=== PATIENT | male | born 1995 | race Caucasian/White ===

== ENCOUNTER 2017-12-10 11:42 | Inpatient (IN) | payer BC, OTHER ==
[2017-12-10 12:12] LABS: ABS Basophils 0 10^3/ul (0-0.2); ABS Eosinophils 0.1 10^3/ul (0-0.6); ABS Lymphocytes 1.1 10^3/ul (1.0-4.8); ABS Monocytes 0.5 10^3/ul (0-0.8); ABS Neutrophils 4.1 10^3/ul (1.5-7.7); ABS Nucleated RBC 0 10^3/ul; Eosinophil % 1.4 % (0-6); Hematocrit 39 % (42-52); Hemoglobin 13.6 g/dl (14.0-18.0); Lymphocyte % 18.6 % (25-47); Mean Corpuscular HGB Conc 35 g/dl (31-36); Mean Corpuscular Hemoglobin 31 pg (27-31); Mean Corpuscular Volume 88 fL (80-94); Nucleated Red Blood Cells % 0.1; Platelet Count 248 10^3/ul (150-450); Red Blood Count 4.39 10^6/ul (4.00-5.40); Red Cell Distribution Width 12 % (10.5-15); White Blood Count 5.8 10^3/ul (3.5-10.8)
--- NOTE | 2017-12-10 12:15 | ED ---
Adult Trauma - HPI Summary HPI Summary: This pt is a 21 y/o male presenting to [facility] referred by Dr. Gutierrez for reevaluation of L1 and T12 fractures s/p back injury on 12/03/17. Mother reports that on 12/03 pt was working on power line standing on a 40 ft pole. Per mother, the pole was rodded below the ground and pt fell with the pole from a 40 ft height. Pt had LOC and does not remember the accident. Mother states pt suffered a severe concussion, lacerated spleen, and fractures on left forearm, left elbow and L1,T12. Pt was airlifted to a trauma center in [place] and neurosurgeon there attended pt's arm first and wanted his back stabilized. Neurosurgeon believed that there was a 40% chance pt's back might heal on its own with a brace but may still need surgery. Pt saw Dr. Gutierrez, neurosurgeon , today and he believes the pt has an unsafe back and needs surgery. Pt was referred to the ED for repeat imaging and a consult. Pt currently reports tingling on left arm. Denies tingling, weakness, or numbness in lower extremities, urinary or bowel dysfunction, chest pain, SOB. Pt is currently on 600 mg Ibuprofen and a muscle relaxer. He states his pain is controlled. He only took 2 oxycodone after his accident, none since then. He drinks alcohol occasionally. Denies drug or tobacco use. - History of Current Complaint Chief Complaint: EDBackInjuryPain Stated Complaint: BACK INJURY Time Seen by Provider: 12/10/17 11:50 Hx Obtained From: Patient Mechanism of Injury: Fall - from 40 ft height on 12/03 Ambulatory at the Scene: No Loss of Consciousness: prolonged (minutes) Onset/Duration: Started Days Ago, Traumatic, Still Present Onset of Pain: Days Current Severity: Severe Pain Intensity: 7 Pain Scale Used: 0-10 Numeric Location: Back, Extremities - left upper Aggravating Factor(s): Movement Alleviating Factor(s): Rest Associated Signs & Symptoms: Positive: Loss of Consciousness - on 12/03. Negative: SOB, Chest Pain, Other: - urinary or bowel dysfunction, tingling, weakness or numbness in LE - Allergy/Home Medications Allergies/Adverse Reactions: Allergies Allergy/AdvReac Type Severity Reaction Status Date / Time Penicillins Allergy Unknown Verified 12/10/17 11:59 Reaction Details Home Medications: Home Medications Acetaminophen TAB* [Tylenol TAB*] 650 mg PO Q4H PRN 12/10/17 [History Confirmed 12/10/17] Cyclobenzaprine TAB* [Flexeril 10 MG TAB*] 10 mg PO TID PRN 12/10/17 [History Confirmed 12/10/17] Docusate CAP* [Colace Cap*] 100 mg PO BID PRN 12/10/17 [History Confirmed ] Ibuprofen TAB* [Motrin TAB* 600 MG] 600 mg PO TID WITH MEALS PRN 12/10/17 [ History Confirmed 12/10/17] oxyCODONE TAB* [Roxycodone TAB 5 mg*] 5 - 10 mg PO Q4H PRN 12/10/17 [History Confirmed 12/10/17] PMH/Surg Hx/FS Hx/Imm Hx Endocrine/Hematology History: Denies: Hx Diabetes Cardiovascular History: Denies: Hx Hypertension Musculoskeletal History: Reports: Hx of Fracture(s) - L1 and T12 fractures, left forearm, and left elbow - Surgical History Surgery Procedure, Year, and Place: Appendectomy. Varicocele surgery Infectious Disease History: No Infectious Disease History: Denies: Traveled Outside the [place] in Last 30 Days - Family History Known Family History: Positive: Cardiac Disease - grandfather with MS at age 36 Family History: maternal grandmother with non-hodgkin's - Social History Alcohol Use: Occasionally Substance Use Type: Reports: None Smoking Status (MU): Never Smoked Tobacco Review of Systems Negative: Fever, Chills Negative: Chest Pain Negative: Shortness Of Breath Negative: incontinence Musculoskeletal: Other - L1 and T12 fractures, left forearm and elbow fractures Positive: Paresthesia - in left arm only, denies paresthesia in lower ext.. Negative: Weakness, Numbness All Other Systems Reviewed And Are Negative: Yes Physical Exam - Summary Physical Exam Summary: VITAL SIGNS: Reviewed. GENERAL: Patient is a well-developed and nourished male. Patient is not in any acute respiratory distress. HEAD AND FACE: No signs of trauma. No ecchymosis, hematomas or skull depressions. No sinus tenderness. EYES: PERRLA, EOMI x 2, No injected conjunctiva, no nystagmus. EARS: Hearing grossly intact. Ear canals and tympanic membranes are within normal limits. MOUTH: Oropharynx within normal limits. NECK: Supple, trachea is midline, no adenopathy, no JVD, no carotid bruit, no c- spine tenderness, neck with full ROM. CHEST: Symmetric, no tenderness at palpation LUNGS: Clear to auscultation bilaterally. No wheezing or crackles. CVS: Regular rate and rhythm, S1 and S2 present, no murmurs or gallops appreciated. ABDOMEN: Soft, non-tender. No signs of distention. No rebound, no guarding, and no masses palpated. Bowel sounds are normal. MSK: Pt is wearing a thoracolumbar brace. He has bruising in left upper extremity and swelling with good capillary refill and good pulses. Hematoma under left arm. NEURO: Alert and oriented x 3. No acute neurological deficits. Speech is normal and follows commands. SKIN: Dry and warm Triage Information Reviewed: Yes Vital Signs On Initial Exam: Initial Vitals Temp Pulse Resp BP Pulse Ox 98.2 F 117 16 112/62 97 12/10/17 11:52 12/10/17 11:52 12/10/17 11:52 12/10/17 11:52 12/10/17 11:52 Vital Signs Reviewed: Yes Diagnostics - Vital Signs Vital Signs Temp Pulse Resp BP Pulse Ox 12/10/17 11:52 98.2 F 117 16 112/62 97 - Laboratory Result Diagrams: 12/10/17 12:05 12/10/17 12:05 Lab Statement: Any lab studies that have been ordered have been reviewed, and results considered in the medical decision making process. - Radiology Thoracic spine XR Xray Interpretation: Positive (See Comments) - IMPRESSION: 1. No significant change at mild loss of height at the anterior column o fthe L1 vertebral body compared with the December 03, 2017 exam. Only mild dorsal bulging of the middle column evident without significant change. 2. Grossly nondisplaced fracture visualized extending through the L2 LEFT transverse process. 3. New mild LEFT lateral convexity of the paraspinal soft tissue contours at the L1-L2 levels concerning for paraspinal hematoma. Dr. Menendez has reviewed this report. Radiology Interpretation Completed By: Radiologist Lumbar spine XR Xray Interpretation: Positive (See Comments) - IMPRESSION: 1. No significant change at mild loss of height at the anterior column o fthe L1 vertebral body compared with the December 03, 2017 exam. Only mild dorsal bulging of the middle column evident without significant change. 2. Grossly nondisplaced fracture visualized extending through the L2 LEFT transverse process. 3. New mild LEFT lateral convexity of the paraspinal soft tissue contours at the L1-L2 levels concerning for paraspinal hematoma. Dr. Menendez has reviewed this report. Radiology Interpretation Completed By: Radiologist - CT Lumbar spine CT CT Interpretation: Positive (See Comments) - IMPRESSION: 1. Posterior column T12 fracture as described. 2. Anterior, middle, and posterior column L1 fractures as described; Chance axially oriented fracture pattern. 3. Posterior columb L2 fracture as described. 4. Negative for resulting central canal stenosis. 5. Mild posttraumatic stenosis at the LEFT L1-L2 foramina. 6. Accounting for differences in techniques there is no appreciable change in fracture alignment compared with the December 04, [address] Menendez has reviewed this report. CT Interpretation Completed By: Radiologist Adult Trauma Course/Dx - Course Assessment/Plan: Pt is a 21 y/o male presenting to [facility] referred by Dr. Gutierrez for reevaluation of L1 and T12 fractures s/p traumatic back injury on 12/03/17 after falling off a 40 ft height. Lumbar spine and thoracic spine x- rays show 1. No significant change at mild loss of height at the anterior column o fthe L1 vertebral body compared with the December 03, 2017 exam. Only mild dorsal bulging of the middle column evident without significant change. 2. Grossly nondisplaced fracture visualized extending through the L2 LEFT transverse process. 3. New mild LEFT lateral convexity of the paraspinal soft tissue contours at the L1-L2 levels concerning for paraspinal hematoma. Lumbar spine CT reveals Posterior column T12 fracture as described. 2. Anterior, middle , and posterior column L1 fractures as described; Chance axially oriented fracture pattern. 3. Posterior column L2 fracture as described. 4. Negative for resulting central canal stenosis. 5. Mild posttraumatic stenosis at the LEFT L1- L2 foramina. 6. Accounting for differences in techniques there is no appreciable change in fracture alignment compared with the December 04, 2017 MRI. Blood work without any significant abnormality except for slight anemia, total bili 1.3, and CRP of 11.2. The patient did not require any pain medications. The patient is comfortable. At this point Dr. Reed from neurosurgery came and will admit the patient to his services for further workup and management. Patient is hemodynamically stable alert and oriented 3. - Diagnoses Provider Diagnoses: Vertebral fracture - Physician Notifications Discussed Care Of Patient With: Gregory Reed - neurosurgeon Instructed by Provider To: Admit As Inpatient Discharge - Sign-Out/Discharge Documenting (check all that apply): Patient Departure - Admit to [facility] All imaging exams completed and their final reports reviewed: Yes - Discharge Plan Condition: Stable Disposition: ADMITTED TO [facility] - Billing Disposition and Condition Condition: STABLE Disposition: Admitted to [facility] - Attestation Statements Document Initiated by Rony: Yes Documenting Scribe: Lily Johnson Provider For Whom Rony is Documenting (Include Credential): Fareed Menendez MD Scribe Attestation: Lily Ba, scribed for Fareed Menendez MD on 12/12/17 at 0746. Scribe Documentation Reviewed: Yes Provider Attestation: The documentation as recorded by the Lily chong accurately reflects the service I personally performed and the decisions made by , Fareed Menendez MD
--- OUTSIDE RECORDS SUMMARY | 2017-12-10 12:50 | XMS REPORT ---
:1995 External Reference #:[id number] Author Organization [facility] Address [address] [place] [address] Phone [phone] Care Team Providers Name Role Phone Roldan Meyers MD Primary Care Physician Unavailable Payers Type Date Identification Numbers Payment Provider Subscriber Workers Compensation Effective: Policy Number: [employer] 2017 [id number] Onset: 2017 Group Number: [id number] [address] [id number] PayID: [id number] [place] [address] Problems Date Description Provider Status Onset: 12/10/2017 Closed fracture of lumbar vertebra Vassilios MD Brenda Active without spinal cord injury Social History Type Date Description Comments Lives With Mother And Father 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 Smoking Patient has never smoked Daily Caffeine Does Not Consume Caffeine Allergies, Adverse Reactions, Alerts Date Description Reaction Status Severity Comments 12/10/2017 Penicillin active Medications Medication Date Status Form Strength Qnty SIG Indications Ordering Provider Ibuprofen 00 Active Tablets 600mg three times a Unknown /0000 day Cyclobenzaprine Active Tablets 10mg 1 tablet by Unknown HCL /0000 mouth q8 hours as needed muscle spasms Oxycodone HCL 00 Active Tablets 5mg 1 tabs by Unknown /0000 mouth every 4-6 hours as needed Acetaminophen 00/00 Active Tablets 325mg 2 tablets by Unknown /0000 mouth every 6 hours as needed for pain/fever Docusate Sodium 00 Active Capsules 100mg 1 tab every Unknown /0000 12 hours as needed for constipation Vital Signs Date Vital Result Comment 12/10/2017 Weight 214.00 lb Heart Rate 88 /min BP Systolic Sitting 136 mmHg BP Diastolic Sitting 84 mmHg Respiratory Rate 20 /min Body Temperature 97.6 F Results Description No Information Procedures Description No Information Plan of Care 12/10/2017 - Ck Gutierrez, [id number] Unsp fracture of first lumbar vertebra, init for clos fxFollow up:RV in 2 weeks. Patient will go to ED today for further imaging.
[2017-12-10] MEDS ORDERED: Al Hydrox/Mg Hydrox/Simet LIQ* 30 ML UDC PO PRN (13:17)
--- NOTE | 2017-12-10 13:18 | RAD ---
Indication: Lumbar sacral spine junction fracture secondary to 40 foot fall from a power line pole December 03, 2017. Comparison: December 03, 2017 radiographs. Technique: Standing AP and lateral views thoracic spine and lumbar sacral spine obtained with a brace in place. Report: Normal thoracic kyphosis and lumbar lordosis. Negative for spondylolisthesis at any level. No significant change at mild loss of height at the anterior column of the L1 vertebral body compared with the December 03, 2017 exam. Only mild dorsal bulging of the middle column evident without significant change. Grossly nondisplaced fracture visualized extending through the L2 LEFT transverse process. Mild LEFT lateral convexity of the paraspinal soft tissue contours at the L1-L2 levels concerning for paraspinal hematoma. IMPRESSION: #. No significant change at mild loss of height at the anterior column of the L1 vertebral body compared with the December 03, 2017 exam. Only mild dorsal bulging of the middle column evident without significant change. #. Grossly nondisplaced fracture visualized extending through the L2 LEFT transverse process. #. New mild LEFT lateral convexity of the paraspinal soft tissue contours at the L1-L2 levels concerning for paraspinal hematoma.
[2017-12-10] MEDS: Magnesium Hydroxide LIQ* 30 ML UDC PO PRN (13:44)
[2017-12-10] MEDS: oxyCODONE/Acetamin 5/325 MG* TAB PO PRN ×3 (13:44→22:37)
[2017-12-10] MEDS: Ibuprofen TAB* 600 MG PO PRN ×2 (13:44→22:33)
--- NOTE | 2017-12-10 13:55 | RAD ---
Indication: Back pain post 40 foot fall with thoracic lumbar junction fractures December 03, 2017. Comparison: December 04, 2017 MRI and December 10, 2017 radiographs. Technique: Noncontrast CT lumbar sacral spine. Multiplanar reformation. Report: Negative for appreciable paraspinal hematoma. Chronic bilateral L5 spondylolysis with partial osseous fusion. Normal vertebral alignment without spondylolisthesis at any level. Oblique axial fracture through the spinous process of the T12 vertebral body with up to 0.5 cm posterior displacement. Negative for fracture of the middle or anterior columns at T12. Axial oriented Chance fracture at L1 involving the anterior, middle, and posterior columns. Disproportionate anterior compression with resulting approximate 30% loss of height at the anterior margin of the vertebral body. Negative for resulting acquired central canal stenosis. Up to 0.6 cm cephalocaudal distraction at the fracture plane where it extends through the bilateral pars interarticularis. The fracture extends to involve the LEFT transverse process with up to 0.7 cm anterior displacement. Additional fracture at L1 involving the LEFT posterior inferior margin of the vertebral body with only up to 2.5 mm posterior and caudal displacement. Resulting mild posttraumatic stenosis at the LEFT L1-L2 foramina. At L2 there is a grossly nondisplaced fracture at the peripheral cephalad margin of the LEFT transverse process. No CT abnormality of the intervertebral discs evident. IMPRESSION: #. Posterior column T12 fracture as described #. Anterior, middle, and posterior column L1 fractures as described; Chance axially oriented fracture pattern. #. Posterior column L2 fracture as described. #. Negative for resulting central canal stenosis. #. Mild posttraumatic stenosis at the LEFT L1-L2 foramina. #. Accounting for differences in technique there is no appreciable change in fracture alignment compared with the December 04, 2017 MRI.
--- NOTE | 2017-12-10 18:21 | RAD ---
INDICATION: Status post ORIF LEFT elbow. Traumatic fall. COMPARISON: December 03, 2017 TECHNIQUE: AP, lateral, and oblique views LEFT elbow. REPORT AND IMPRESSION: #. Dorsal and medial cortical plates traverse the comminuted intra-articular fracture of the proximal ulna with resulting gross anatomic alignment. #. The elbow joint remains located. #. Joint effusion and soft tissue swelling most prominent posteriorly. #. Radiopaque densities in the posterior soft tissues may represent bone fragments or embedded foreign bodies. Presence of splint on the prior exam limits comparison.
--- NOTE | 2017-12-10 18:23 | RAD ---
Indication: Post ORIF proximal ulna. Comparison: Elbow exam of the same date. Technique: AP and crosstable lateral views LEFT radius and ulna. REPORT AND IMPRESSION: #. Refer to dedicated elbow report of the same day for description of proximal ulna findings. No additional abnormality of the ulna or radius evident. Normal alignment at the distal radial ulnar and radiocarpal joints. Soft tissue swelling most prominent along the dorsal aspect.
[2017-12-10 19:10] LABS: Urine Appearance Clear; Urine Color Yellow; Urine Ketones Negative (Negative); Urine Urobilinogen Negative (Negative)
[2017-12-10 19:11] LABS: Urine Blood Negative (Negative); Urine Protein 1+(30 mg/dL) (Negative)
--- NOTE | 2017-12-10 20:30 | HP ---
ADMISSION HISTORY AND PHYSICAL: DATE OF ADMISSION: 12/10/17 CHIEF COMPLAINT: Back pain. 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 He suffered multiple injuries to include an open left elbow fracture and L1 fracture and a small splenic laceration. He was hospitalized in [facility] where he was observed for his splenic injury, which remained stable. He underwent open reduction and internal fixation of his left elbow fracture. For his lumbar fracture, he was placed in a [place] brace and discharged home to follow up here. He was apparently seen by Dr. Bentley, who referred him to our office and he was seen in our clinic this morning by Dr. Gutierrez, who reviewed his x- ray studies from [place] and felt that he had a significantly unstable Chance fracture at L1. Upon review of the CT, referred the patient to the [facility] for a repeat CT scan to see if there have been any movements since his study on 12/03/[address] scan looked essentially the same. He has a very unstable Chance fracture through L1 that extends all the way from both anterior to posterior to include both anterior and posterior ligaments of L1 as well as the spinous process fracture of T12. So, decision was made to admit the patient for surgical stabilization. PAST MEDICAL HISTORY: He has no prior significant medical problems. PAST SURGICAL HISTORY: Significant for previous surgeries to include a varicose vein stripping and an appendectomy. MEDICATIONS: At the time of admission included: 1. Ibuprofen 600 mg p.o. q.6 hours as needed for pain. 2. Oxycodone 5/325 as needed for pain. ALLERGIES: He is allergic to PENICILLIN. FAMILY HISTORY: A family history was taken, it did not contribute to this illness. SOCIAL HISTORY: The patient works as an forge utility worker and has a supportive family. He does not smoke and does have an occasional drink. REVIEW OF SYSTEMS: A system review was significant only for his orthopedic review for his left elbow fracture, his neurological review for his L1 Chance fracture. The remainder of his system review performed, it did not contribute to this illness. PHYSICAL EXAMINATION HEENT: Head was normocephalic with no scalp contusions or tenderness. Eyes reveal full range of extraocular movements with pupils are equal and reactive to light. NECK: Supple. LUNGS: Clear to auscultation. CARDIOVASCULAR EXAM: Revealed a regular rate and rhythm. ABDOMEN: Soft with normal bowel sounds. No tenderness. EXTREMITIES: Revealed a bandage and splint on his left arm. He had full motion of all extremities. NEUROLOGIC: Revealed awake, alert, and oriented. Motor examination revealed 5/ 5 strength in all extremities. Sensory examination was intact to pinprick and light touch. Reflexes were 2+ with downgoing toes and no clonus. DIAGNOSTIC STUDIES/LAB DATA: His x-rays studies were reviewed and show evidence of an unstable fracture at L1. PLAN: He has been admitted at this time for elective surgical stabilization. I am going to ask Dr. Montes to evaluate his left elbow fracture. [id number]/[facility] #: [id number] MTDD
[2017-12-10] MEDS: Zolpidem TAB* 10 MG PO PRN (22:33)
[2017-12-11] MEDS: oxyCODONE/Acetamin 5/325 MG* TAB PO PRN ×3 (02:48→21:36)
[2017-12-11] MEDS: Ibuprofen TAB* 600 MG PO PRN (05:55)
--- NOTE | 2017-12-11 10:15 | PN ---
Progress Note - Progress Note Date of Service: 12/10/17 Note: Pt seen and examined. Full note dictated. S/P ORIF L elbow. will need follow up outpatient with me next week. No weight bearing. Please work on ROM of elbow.
--- NOTE | 2017-12-11 11:40 | PN ---
Progress Note - Progress Note Date of Service: 12/11/17 SOAP: Subjective: [] Patient remains intact X ray studies reviewed with patient and parents Treatment options discussed Objective: []Appre Dr. Schneider help with elbow fracture Neuro intact Assessment: []He has an unstable fracture at L1 Plan: [] A proposed procedure of posterior lumbar stabilization and fusion was explained in detail. The risks of surgery to include bleeding, infection,weakness, and CSF leak were all discussed. Surgery svheduled for AM 12/12
--- NOTE | 2017-12-11 14:59 | PN ---
Progress Note - Progress Note Date of Service: 12/11/17 SOAP: Subjective: [] Patient was seen and examined at beside due to nursing reports of increased pain of the left hand as well as bruising vs other discoloration. Objective: []General: Well appearing, NAD LUE: Hand is mildly edematous and is warm with green and purple ecchymosis, no mottling. Mild tenderness to palpation of dorsal hand without deformity and without any severe or point tenderness. Radial pulse 2+, normal carol test, capillary refill less than two seconds distally throughout all digits. Upper arm , forearm, hand and all digits remain compressible without pain. Flexion and extension of wrist, MCPs, PIPs and DIPs intact. Assessment: []s/p left elbow ORIF with ecchymosis Plan: [] POLLY NASCIMENTO Patient was seen 2x this afternoon and LUE elevated on a pillow when first seen at 3 pm. Seen again at 430pm with a consistent exam though at 430pm reports hand pain has resolved. Ice to comfort. Alert orthopedics with any further concerns. Will continue to follow while in house
[2017-12-11] MEDS: Zolpidem TAB* 10 MG PO PRN (22:21)
--- NOTE | 2017-12-11 22:43 | CONS ---
CONSULTATION REPORT: DATE OF CONSULT: 12/10/17. ATTENDING PHYSICIAN: Dr. Moo Montes. CHIEF COMPLAINT: Left arm pain. 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 He had multiple injuries. He had loss of consciousness. He had an open left elbow fracture and a L1 fracture with small splenic laceration. He was observed. He underwent ORIF of his elbow. He was placed in a brace and was allowed to follow up here. This occurred on 12/03/17. He does not complain of obvious numbness or tingling. He is able to ambulate, but he is using a brace. He does have some increasing back pain and Dr. Reed has admitted him for a possible surgical intervention of his spine issues and was consulted for evaluation of his elbow. PAST MEDICAL HISTORY: Negative. PAST SURGICAL HISTORY: Varicose vein stripping, appendectomy, ORIF of the left elbow. MEDICATIONS: 1. Ibuprofen. 2. Oxycodone. ALLERGIES: PENICILLIN. FAMILY HISTORY: Negative. 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 He does not smoke and drinks on occasion. He is right hand dominant. REVIEW OF SYSTEMS: A 14-point review of systems reviewed with the patient and significant for his left elbow, open elbow fracture and his L1 Chance fracture. No numbness or tingling. He does report loss of consciousness. He had a recent history of splenic injury. Otherwise, the remainder of the systems is negative. PHYSICAL EXAM: Vitals: Temperature is 98.3, pulse 95, respiratory rate 16, O2 saturation 99% on room air. Blood pressure 126/57. EOMI. Chest: Respiring comfortable. Heart: Regular rate and rhythm. Abdomen: Soft, nontender. Pleasant mood and normal affect. Alert, oriented x3. Dressing is intact. There is well healing incision. He is missing about full extension is 5 degrees , shy of full flexion. He is sensate to light touch about the first dorsal webspace, index, long finger as well as small finger. 2+ radial pulse. He has mild swelling of his hand and bruising distally. He has full range of motion of his bilateral shoulders and warm and well perfused legs. He is walking without any leg pain. He has no other complaints. DIAGNOSTIC STUDIES/LAB DATA: X-rays were ordered and reviewed that demonstrate status post open reduction internal fixation of the olecranon with 2 plates; however, appears to be in good position. There is near anatomic alignment with mild step-off of the joint. No new fracture, dislocation in the forearm as well. ASSESSMENT AND PLAN: He has a left elbow sounds like an open fracture. He underwent open reduction internal fixation. He will heal fine. He is young and healthy. He will see me in the office next week to take sutures out. He is allowed to do range of motion. He is not allowed to lift, push or pull and his activities as tolerated. I will see the patient back next week for evaluation of the elbow. [id number]/[facility] #: [id number] MTDD
[2017-12-12] MEDS: oxyCODONE/Acetamin 5/325 MG* TAB PO PRN (03:39)
[2017-12-12] MEDS: Ibuprofen TAB* 600 MG PO PRN ×2 (05:42→19:19)
[2017-12-12] MEDS ORDERED: Clindamycin 900 MG/D5W BAG(*) 900 MG/50 ML BAG IVPB ONE (09:46)
[2017-12-12] MEDS ORDERED: Famotidine IV* 10 MG/ML 2 ML (20 mg) IV ONE (09:48)
[2017-12-12] MEDS ORDERED: Famotidine IV* 10 MG/ML 2 ML (20 mg) ONE (09:48)
[2017-12-12] MEDS ORDERED: Dexamethasone IV* 4 MG/ML 1 ML (4 MG) ONE (09:48)
[2017-12-12] MEDS ORDERED: Buffered Lidocaine 0.9% SYRIN* 5 ML/SYR SYRINGE INTRADERM ONE (09:48)
[2017-12-12] MEDS ORDERED: Dexamethasone IV* 4 MG/ML 1 ML (4 MG) IV SLOW PU ONE (09:48)
[2017-12-12] MEDS ORDERED: Bacitracin IV* 50,000 UNITS INJ ONE ×2 (09:51→13:45)
[2017-12-12] MEDS ORDERED: Thrombin 5,000 UNITS* 1 APPLIC KIT - topical use - TOPICAL ONE (09:51)
[2017-12-12] MEDS ORDERED: Lidocain 1% EPI 1:100,000 * 30 ML MDV ONE (09:51)
[2017-12-12] MEDS ORDERED: Midazolam* 1 MG/ML 5 ML VIAL (5 MG) ONE (10:01)
[2017-12-12] MEDS ORDERED: Atracurium* 10 MG/ML 10 ML VIAL ONE ×2 (10:01→10:02)
[2017-12-12] MEDS ORDERED: fentaNYL* 50 MCG/ML 5 ML VIAL (250 MCG VIAL) ONE (10:01)
[2017-12-12] MEDS ORDERED: Propofol* 10 MG/ML 20 ML BTL IV PUSH ONE (10:02)
[2017-12-12] MEDS ORDERED: Ondansetron INJ* 2 MG/ML VIAL ONE ×2 (10:02→14:47)
[2017-12-12] MEDS ORDERED: Lidocaine 2% PF * 5 ML VIAL ONE (10:02)
--- NOTE | 2017-12-12 10:02 | PN ---
Progress Note - Progress Note Date of Service: 12/12/17 SOAP: Subjective: [] Patient was seen and examined at beside. He feels well with pain of the left elbow that remains tolerable and no other complaints. Hand is nonpainful. Today he will go to the OR for back surgery. Objective: []General: Well appearing, NAD LUE: Digits, hand, forearm and upper arm are warm to touch and compressible, + mildly edematous, + green and purple ecchymosis, no mottling. Radial pulse 2+, capillary refill less than two seconds distally throughout all digits. Sensation intact to light touch throughout all digits. Flexion and extension of wrist, MCPs, PIPs and DIPs intact. Assessment: []s/p left elbow ORIF with ecchymosis Plan: [] NWB LUE Daily dry sterile dressing change, okay to be done by nursing if not done by ortho provider Ice to comfort. Alert orthopedics with any concerns Will continue to follow while in house, FU next week with Dr Montes Vital Signs Temp 97.7 F 12/12/17 07:28 Pulse 77 12/12/17 07:28 Resp 18 12/12/17 08:00 BP 131/71 12/12/17 07:28 Pulse Ox 100 12/12/17 07:28 Intake & Output 12/11/17 12/12/17 12/12/17 18:59 06:59 18:59 Intake Total 440 300 Output Total 1100 Balance 440 -800 Weight 215 lb Intake: Oral 440 300 Output: Urine 1100 Other: # Voids 2 Laboratory Last Values WBC 5.8 10^3/ul (3.5-10.8) 12/10/17 12:05 RBC 4.39 10^6/ul (4.00-5.40) 12/10/17 12:05 Hgb 13.6 g/dl (14.0-18.0) L 12/10/17 12:05 Hct 39 % (42-52) L 12/10/17 12:05 MCV 88 fL (80-94) 12/10/17 12:05 MCH 31 pg (27-31) 12/10/17 12:05 MCHC 35 g/dl (31-36) 12/10/17 12:05 RDW 12 % (10.5-15) 12/10/17 12:05 Plt Count 248 10^3/ul (150-450) 12/10/17 12:05 MPV 7.0 um3 (7.4-10.4) L 12/10/17 12:05 Neut % (Auto) 70.6 % (38-83) 12/10/17 12:05 Lymph % (Auto) 18.6 % (25-47) L 12/10/17 12:05 [place] % (Auto) 9.0 % (0-7) H 12/10/17 12:05 Eos % (Auto) 1.4 % (0-6) 12/10/17 12:05 Baso % (Auto) 0.4 % (0-2) 12/10/17 12:05 Absolute Neuts (auto) 4.1 10^3/ul (1.5-7.7) 12/10/17 12:05 Absolute Lymphs (auto) 1.1 10^3/ul (1.0-4.8) 12/10/17 12:05 Absolute Monos (auto) 0.5 10^3/ul (0-0.8) 12/10/17 12:05 Absolute Eos (auto) 0.1 10^3/ul (0-0.6) 12/10/17 12:05 Absolute Basos (auto) 0 10^3/ul (0-0.2) 12/10/17 12:05 Absolute Nucleated RBC 0 10^3/ul 12/10/17 12:05 Nucleated RBC % 0.1 12/10/17 12:05 Sodium 137 mmol/L (135-145) 12/10/17 12:05 Potassium 4.4 mmol/L (3.5-5.0) 12/10/17 12:05 Chloride 103 mmol/L (101-111) 12/10/17 12:05 Carbon Dioxide 29 mmol/L (22-32) 12/10/17 12:05 Anion Gap 5 mmol/L (2-11) 12/10/17 12:05 BUN 21 mg/dL (6-24) 12/10/17 12:05 Creatinine 0.92 mg/dL (0.67-1.17) 12/10/17 12:05 Est GFR ( Amer) 123.4 (>60) 12/10/17 12:05 Est GFR (Non-Af Amer) 102.0 (>60) 12/10/17 12:05 BUN/Creatinine Ratio 22.8 (8-20) H 12/10/17 12:05 Glucose 94 mg/dL (70-100) 12/10/17 12:05 Calcium 9.7 mg/dL (8.6-10.3) 12/10/17 12:05 Total Bilirubin 1.30 mg/dL (0.2-1.0) H 12/10/17 12:05 AST 25 U/L (13-39) 12/10/17 12:05 ALT 23 U/L (7-52) 12/10/17 12:05 Alkaline Phosphatase 69 U/L (34-104) 12/10/17 12:05 C-Reactive Protein 11.25 mg/L (<8.01) H 12/10/17 12:05 Total Protein 7.5 g/dL (6.4-8.9) 12/10/17 12:05 Albumin 4.8 g/dL (3.2-5.2) 12/10/17 12:05 Globulin 2.7 g/dL (2-4) 12/10/17 12:05 Albumin/Globulin Ratio 1.8 (1-3) 12/10/17 12:05 Urine Color Yellow 12/10/17 17:20 Urine Appearance Clear 12/10/17 17:20 Urine pH 6 (5-9) 12/10/17 17:20 Ur Specific [place] 1.020 (1.010-1.030) 12/10/17 17:20 Urine Protein 1+(30 mg/dl) (Negative) A 12/10/17 17:20 Urine Ketones Negative (Negative) 12/10/17 17:20 Urine Blood Negative (Negative) 12/10/17 17:20 Urine Nitrate Negative (Negative) 12/10/17 17:20 Urine Bilirubin Negative (Negative) 12/10/17 17:20 Urine Urobilinogen Negative (Negative) 12/10/17 17:20 Ur Leukocyte Esterase Negative (Negative) 12/10/17 17:20 Urine Glucose Negative (Negative) 12/10/17 17:20
[2017-12-12] MEDS ORDERED: fentaNYL* 50 MCG/ML 2 ML VIAL (100 MCG VIAL) ONE ×5 (10:41→15:17)
[2017-12-12] MEDS ORDERED: DiMENhydriNATE IV* 50 MG/ML VIAL IV PUSH PRN (11:12)
[2017-12-12] MEDS ORDERED: Ondansetron INJ* 2 MG/ML VIAL IV PRN (11:12)
[2017-12-12] MEDS ORDERED: Naloxone* 0.4 MG/ML 1 ML VIAL IV PRN (11:12)
[2017-12-12] MEDS ORDERED: HYDROmorphone INJ1* 1 MG/ML SYRINGE IV PRN (11:12)
[2017-12-12] MEDS ORDERED: Scopolamine 1.5 mg* PATCH TRANSDERM PRN (11:12)
[2017-12-12] MEDS ORDERED: Vancomycin(*) 1,000 MG VIAL ONE (14:15)
[2017-12-12] MEDS ORDERED: Scopolamine 1.5 mg* PATCH ONE (14:52)
[2017-12-12] MEDS ORDERED: DiMENhydriNATE IV* 50 MG/ML VIAL ONE (14:57)
[2017-12-12] MEDS: fentaNYL* 50 MCG/ML 2 ML VIAL (100 MCG VIAL) IV PRN ×2 (15:19→15:39)
[2017-12-12] MEDS: Morphine INJ* 4 MG/ML 1 ML SYRINGE (NEW SYRINGE VERSION) IV PRN (16:45)
--- NOTE | 2017-12-12 17:53 | RAD ---
Indication: Thoracolumbar fusion. 3 lateral views of lumbar spine demonstrates localization of L2 vertebra. 3 spot images were reviewed. IMPRESSION: Localization of the L2 vertebra.
--- NOTE | 2017-12-12 17:54 | RAD ---
CPT II Codes: G9500 Indication: T11-L3 fusion Fluoroscopic services provided for referring physician. 9.9 seconds of fluoroscopy time was used. Multiple intraoperative control images were obtained. IMPRESSION: Fluoroscopic services provided for referring physician for pain management.
[2017-12-12] MEDS: Cyclobenzaprine TAB* 10 MG PO PRN (19:18)
[2017-12-12] MEDS: Zolpidem TAB* 10 MG PO PRN (21:38)
[2017-12-13] MEDS: Cyclobenzaprine TAB* 10 MG PO PRN ×3 (03:39→20:07)
[2017-12-13] MEDS: Ibuprofen TAB* 600 MG PO PRN ×3 (03:40→20:08)
[2017-12-13] MEDS: Morphine INJ* 4 MG/ML 1 ML SYRINGE (NEW SYRINGE VERSION) IV PRN ×2 (04:02)
[2017-12-13] MEDS ORDERED: Naloxone* 0.4 MG/ML 1 ML VIAL IV PUSH PRN (07:34)
--- NOTE | 2017-12-13 07:37 | PN ---
Progress Note - Progress Note Date of Service: 12/13/17 SOAP: Subjective: []C/O severe muscular pain Legs feel normal Taking Morphine Objective: []High drain output CBC pending this AM Neuro intact Assessment: []Satis post op course Plan: []Change to Morphine PSA
[2017-12-13] MEDS ORDERED: Morphine PCA ADULT* 5 MG/ML 30 ML PCA SCH (08:00)
[2017-12-13 08:30] LABS: ABS Basophils 0 10^3/ul (0-0.2); ABS Eosinophils 0.1 10^3/ul (0-0.6); ABS Lymphocytes 1.2 10^3/ul (1.0-4.8); ABS Monocytes 0.8 10^3/ul (0-0.8); ABS Neutrophils 6.3 10^3/ul (1.5-7.7); ABS Nucleated RBC 0 10^3/ul; Eosinophil % 0.9 % (0-6); Hematocrit 35 % (42-52); Hemoglobin 12.3 g/dl (14.0-18.0); Lymphocyte % 14.3 % (25-47); Mean Corpuscular HGB Conc 36 g/dl (31-36); Mean Corpuscular Hemoglobin 31 pg (27-31); Mean Corpuscular Volume 87 fL (80-94); Mean Platelet Volume 7.2 um3 (7.4-10.4); Nucleated Red Blood Cells % 0; Platelet Count 283 10^3/ul (150-450); Red Blood Count 3.99 10^6/ul (4.00-5.40); Red Cell Distribution Width 12 % (10.5-15); White Blood Count 8.3 10^3/ul (3.5-10.8)
--- NOTE | 2017-12-13 13:32 | PN ---
Progress Note - Progress Note Date of Service: 12/13/17 SOAP: Subjective: [] Patient seen and examined at bedside. His LUE is nonpainful though his back is very painful today. Denies any numbness or tingling of his LUE. Objective: [] General: Well appearing, NAD LUE: Digits, hand, forearm and upper arm are warm to touch and compressible, + mildly edematous, + green and purple ecchymosis, no mottling. Radial pulse 2+, capillary refill less than two seconds distally throughout all digits. Sensation intact to light touch throughout all digits. Flexion and extension of wrist, MCPs, PIPs and DIPs intact. Assessment: []s/p left elbow ORIF with ecchymosis Plan: [] NWB LUE Daily dry sterile dressing change, okay to be done by nursing if not done by ortho provider Ice to comfort. Alert orthopedics with any concerns Xrays printed and brought to patient Will continue to follow while in house, FU next week with Dr Montes
[2017-12-13] MEDS: Magnesium Hydroxide LIQ* 30 ML UDC PO PRN (22:38)
[2017-12-14] MEDS: oxyCODONE/Acetamin 5/325 MG* TAB PO PRN ×3 (01:40→19:54)
--- NOTE | 2017-12-14 10:32 | PN ---
Progress Note - Progress Note Date of Service: 12/14/17 SOAP: Subjective: Left elbow open fracture s/p ORIF 12/03/17 in [place]. Doing well. No pain in elbow, c /o stiffness to wrist. Denies paresthesias or numbness to hand. Pain in back s/ p spinal fusion surgery 12/12. Objective: Vitals: Temp Pulse Resp BP Pulse Ox 97.8 F 73 16 120/47 100 12/14/17 07:22 12/14/17 07:22 12/14/17 07:22 12/14/17 07:22 12/14/17 07:22 Gen: A&Ox3, NAD laying in bed LUE: Incision C/D/I with sutures. + edema and ecchymosis throughout arm. +f/e at wrist, MCP, PIP and DIP joints. N/V intact. Mild ttp over distal radius Assessment: S/P left elbow ORIF Plan: Dry dressings as needed, probable suture removal over weekend PT Pain control for spinal surgery per neurosurg.
[2017-12-14] MEDS: Cyclobenzaprine TAB* 10 MG PO PRN ×2 (10:34→18:10)
[2017-12-14] MEDS: Ibuprofen TAB* 600 MG PO PRN ×2 (10:34→18:10)
[2017-12-14] MEDS: Magnesium Hydroxide LIQ* 30 ML UDC PO PRN (10:34)
--- NOTE | 2017-12-14 16:37 | PN ---
Progress Note - Progress Note Date of Service: 12/14/17 SOAP: Subjective: []POD# 2 Slowly improving Has been up to Bathroom Legs feel rubbery to him Sensation intact Objective: []Voiding improved Neuro intact Assessment: []Slow progress Plan: []Plan to continue drain for now Recheck CBC in AM
[2017-12-14] MEDS: Docusate CAP* 100 MG PO PRN (20:36)
[2017-12-15] MEDS: oxyCODONE/Acetamin 5/325 MG* TAB PO PRN ×6 (00:04→22:47)
[2017-12-15] MEDS: Cyclobenzaprine TAB* 10 MG PO PRN ×3 (02:04→17:53)
[2017-12-15] MEDS: Ibuprofen TAB* 600 MG PO PRN ×3 (02:04→17:53)
[2017-12-15 07:10] LABS: ABS Basophils 0 10^3/ul (0-0.2); ABS Eosinophils 0.1 10^3/ul (0-0.6); ABS Lymphocytes 1.1 10^3/ul (1.0-4.8); ABS Monocytes 0.5 10^3/ul (0-0.8); ABS Neutrophils 4.2 10^3/ul (1.5-7.7); ABS Nucleated RBC 0 10^3/ul; Eosinophil % 1.2 % (0-6); Hematocrit 29 % (42-52); Hemoglobin 10.1 g/dl (14.0-18.0); Lymphocyte % 18.5 % (25-47); Mean Corpuscular HGB Conc 35 g/dl (31-36); Mean Corpuscular Hemoglobin 31 pg (27-31); Mean Corpuscular Volume 88 fL (80-94); Mean Platelet Volume 7.2 um3 (7.4-10.4); Nucleated Red Blood Cells % 0; Platelet Count 239 10^3/ul (150-450); Red Blood Count 3.25 10^6/ul (4.00-5.40); Red Cell Distribution Width 12 % (10.5-15); White Blood Count 5.9 10^3/ul (3.5-10.8)
--- NOTE | 2017-12-15 10:06 | PN ---
Progress Note - Progress Note Date of Service: 12/15/17 SOAP: Subjective: []No events ON. Tolerates po well. Ambulates. Voids. Objective: []VSS Wound s,c,d. Drain output noted. AAOx3 ANITA, CN II-XII grossly intact Motor 5/5 all extremities, Mild antalgic weakness LUE. Sensory grossly intact to light touch Assessment: [] 21 yom L1 chance fracture, sp T11-L3 Posterolateral arthrodesis Plan: []Monitor VS, Neurochecks. Monitor drain output. Ht 29. Monitor CBC PT Encourage ambulation. DC planning. Sharmin Gutierrez MD
--- NOTE | 2017-12-15 10:12 | PN ---
Progress Note - Progress Note Date of Service: 12/15/17 SOAP: Subjective: Left elbow open fracture s/p ORIF 12/03/17 in [place]. Doing well. Elbow somewhat sore , wrist stiffness improved. Denies paresthesias or numbness to hand. Pain in back s/p spinal fusion surgery 12/12. Objective: Vitals: Temp Pulse Resp BP Pulse Ox 97.4 F 70 18 130/44 100 12/15/17 04:09 12/15/17 07:33 12/15/17 10:02 12/15/17 07:33 12/15/17 07:49 Gen: A&Ox3, NAD laying in bed LUE: Incision C/D/I with sutures. + edema and ecchymosis throughout arm, improving. +f/e at wrist, MCP, PIP and DIP joints. N/V intact. Mild ttp over distal radius Assessment: S/P left elbow ORIF Plan: Dry dressings as needed PT for ROM Pain control for spinal surgery per neurosurg.
[2017-12-16] MEDS: Cyclobenzaprine TAB* 10 MG PO PRN ×3 (02:09→18:20)
[2017-12-16] MEDS: Ibuprofen TAB* 600 MG PO PRN ×3 (02:10→18:20)
[2017-12-16] MEDS: oxyCODONE/Acetamin 5/325 MG* TAB PO PRN ×5 (03:48→22:42)
[2017-12-16 05:59] LABS: ABS Basophils 0 10^3/ul (0-0.2); ABS Eosinophils 0.1 10^3/ul (0-0.6); ABS Lymphocytes 1.1 10^3/ul (1.0-4.8); ABS Monocytes 0.5 10^3/ul (0-0.8); ABS Neutrophils 3.9 10^3/ul (1.5-7.7); ABS Nucleated RBC 0 10^3/ul; Eosinophil % 1.6 % (0-6); Hematocrit 27 % (42-52); Hemoglobin 9.6 g/dl (14.0-18.0); Lymphocyte % 19.4 % (25-47); Mean Corpuscular HGB Conc 36 g/dl (31-36); Mean Corpuscular Hemoglobin 31 pg (27-31); Mean Corpuscular Volume 87 fL (80-94); Nucleated Red Blood Cells % 0; Platelet Count 247 10^3/ul (150-450); Red Blood Count 3.08 10^6/ul (4.00-5.40); Red Cell Distribution Width 12 % (10.5-15); White Blood Count 5.6 10^3/ul (3.5-10.8)
[2017-12-16] MEDS: Docusate CAP* 100 MG PO PRN (07:48)
--- NOTE | 2017-12-16 09:50 | PN ---
Progress Note - Progress Note Date of Service: 12/16/17 SOAP: Subjective: [] No events ON. Tolerates po well. Ambulates. Voids. Objective: []VSS Wound s,c,d. Drain output noted. Drain was removed. Catheter appeared to be intact. No complications. Patient tolerated procedure well. AAOx3 ANITA, CN II-XII grossly intact Motor 5/5 all extremities, Mild antalgic weakness LUE. Sensory grossly intact to light touch Assessment: []21 yom L1 chance fracture, sp T11-L3 Posterolateral arthrodesis Plan: []Monitor VS, Neurochecks. Monitor drain output. Ht 27. 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 Sharmin Gutierrez MD
--- NOTE | 2017-12-16 10:49 | PN ---
Progress Note - Progress Note Date of Service: 12/16/17 SOAP: Subjective: Left elbow open fracture s/p ORIF 12/03/17 in [place]. Doing well. Elbow somewhat sore , wrist stiffness improved. Denies paresthesias or numbness to hand. Pain in back s/p spinal fusion surgery 12/12. Objective: Vitals: Temp Pulse Resp BP Pulse Ox 98.2 F 67 18 132/67 100 12/16/17 07:09 12/16/17 07:09 12/16/17 10:16 12/16/17 07:09 12/16/17 07:57 Gen: A&Ox3, NAD laying in bed LUE: Incision C/D/I with sutures. + edema and ecchymosis throughout arm, improving. +f/e at wrist, MCP, PIP and DIP joints. N/V intact. Mild ttp over distal radius Assessment: S/P left elbow ORIF Plan: Sutures removed, no complication or dehiscence. Dry dressings as needed PT for ROM Pain control for spinal surgery per neurosurg.
[2017-12-16] MEDS: Morphine INJ* 4 MG/ML 1 ML SYRINGE (NEW SYRINGE VERSION) IV PRN ×2 (22:05→23:42)
[2017-12-17] MEDS: oxyCODONE/Acetamin 5/325 MG* TAB PO PRN (02:47)
[2017-12-17] MEDS: Ibuprofen TAB* 600 MG PO PRN ×2 (02:47→11:44)
[2017-12-17] MEDS: Cyclobenzaprine TAB* 10 MG PO PRN ×2 (02:48→11:44)
[2017-12-17 07:43] VITALS: BP 125/57
[2017-12-17] MEDS ORDERED: HYDROcodone/ACETAMIN 5-325 MG* 1 TAB PO PRN (07:45)
--- NOTE | 2017-12-17 07:53 | PN ---
Progress Note - Progress Note Date of Service: 12/17/17 SOAP: Subjective: []Doing well Still very uncomfortable at night Ambulating voiding well Objective: []Neuro intact Assessment: []Making good progress Plan: []D/C today D/C Instructions given F/U in one week
--- NOTE | 2017-12-24 10:27 | OP ---
DATE OF OPERATION: 12/12/17 - ROOM #[id number] DATE OF : 89 PRIMARY SURGEON: Gregory Reed MD ASSAYER: Dr. Ck Gutierrez. ANESTHESIA: General. PRE-OP DIAGNOSIS: Unstable Chance fracture L1. POST-OP DIAGNOSIS: Unstable chance fracture L1. OPERATIVE PROCEDURE: Open exploration and stabilization of L1 Chance fracture with thoracolumbar fusion from T11 to L3 with segmental instrumentation, harvesting of autograft for fusion, stereotactic navigation for pedicle screw placement. DESCRIPTION OF PROCEDURE: After satisfactory general anesthesia was obtained, the patient was placed carefully onto the Jose table. The thoracolumbar region was then the clipped, prepped, and draped in sterile manner for thoracolumbar exposure. The skin incision was then outlined from approximately T11 to L3. This incision was infiltrated with 1% Xylocaine with epinephrine, after which was turned down sharply to the subcutaneous tissues. In the region of extending from approximately T12 to L2, there was noted to be ecchymosis in the subcutaneous tissues of the lumbar region. The dissection was carried down to the posterior elements of the spine and the paraspinal musculature stripped away from the posterior elements from T11 to L3. There was noted to be considerable movement of a fractured spinous process of T12 as well as considerable movement of the posterior elements of L1. After exposure have been obtained, which included exposing the transverse processes of L1, L2, and L3, the [place] O-arm intraoperative scanner was brought into the field and after attaching a reference arch inferiorly, a spinning was performed to enable placement of pedicle screws in the L2 and L3 bilaterally. Following the spin, pedicle screws were placed utilizing stereotactic navigation initially on the left side at L2 where a 5.5 mm in diameter 45 mm length screw was placed. At L3 , a 6.5 mm in diameter 45 mm length screw was placed. On the right side, a 6.5 mm 45 mm length screw was placed at both L2 and L3. An additional spinning was then performed verifying good placement of the screws. The reference arc was then moved to the superior aspect of the field and following an additional spin , screws were placed in the T11 and T12 pedicles bilaterally. All 4 of the screws were 6.5 mm in diameter, 40 mm length screws. A confirmatory spin was performed after these screws were placed as well showing excellent placement. Following the screw placement, the rods were placed and bent appropriately to fit from T11 to L3. The spinous process that they have been fractured off T12 was dissected free and harvested for use as autograft. This was combined with bone putty to prepare bone logs, which were used for subsequent fusion. The cortical bone was then decorticated from T11 to L3 and bone graft placed along the lateral gutter from T11 to L3 performing a fusion including those levels. Attention was then redirected to the rods and utilizing the compressor, the rods were connected with the tension applied. At the conclusion of the construct, a plain x-ray was taken showing good screw and homero placement. The wound was irrigated, after which a drain was placed in the epidural space and tunneled it toward the left side. The fascia was reapproximated with 0-Vicryl suture. The subcutaneous tissues closed with the 3-0 Vicryl suture and the skin closed with skin clips. The estimated blood loss was 400 cc and the final sponge, padding, and needle counts were correct. The patient was taken to the recovery, extubated and in stable condition. [id number]/[facility] #: [id number] [facility]ITAL[facility]
== END 2017-12-17 11:49 | disposition home or self-care (01) | DRG 912 ==
LOC: ED 11:42 → SSU 13:58
PROVIDERS: ADMIT Neurological Surgery; ATTEND Neurological Surgery
PROC: 8E0WXBZ Computer Assisted Procedure of Trunk Region (ICD-10-PCS; 2017-12-12)
PROC: 0RG6071 Fusion of Thoracic Vertebral Joint with Autologous Tissue Substitute, Posterior Approach, Posterior Column, Open Approach (ICD-10-PCS; 2017-12-12)
PROC: 0SG1071 Fusion of 2 or more Lumbar Vertebral Joints with Autologous Tissue Substitute, Posterior Approach, Posterior Column, Open Approach (ICD-10-PCS; 2017-12-12)
PROC: 0RGA071 Fusion of Thoracolumbar Vertebral Joint with Autologous Tissue Substitute, Posterior Approach, Posterior Column, Open Approach (ICD-10-PCS; principal; 2017-12-12 11:00)
DX: S22.089A Unspecified fracture of T11-T12 vertebra, initial encounter for closed fracture (principal); S32.019A Unspecified fracture of first lumbar vertebra, initial encounter for closed fracture; S36.039A Unspecified laceration of spleen, initial encounter; W17.89XA Other fall from one level to another, initial encounter; Z88.0 Allergy status to penicillin; Y92.89 Other specified places as the place of occurrence of the external cause; R58 Hemorrhage, not elsewhere classified
CPT/HCPCS: 36415; 72070; 72100; 72131; 76001; 80053; 81003; 81015; 85025; 86140; 99284; A9270-GY; C1713; C9359; J1100; J1240; J2250; J2270; J2405; J2704; J3010; J3370

== ENCOUNTER 2018-01-30 15:02 | Inpatient (IN) | payer OTHER ==
--- NOTE | 2018-01-30 06:48 | HP ---
PREOPERATIVE HISTORY AND PHYSICAL: DATE OF ADMISSION/SURGERY: 01/30/18 DATE OF OFFICE VISIT: 01/29/18 ATTENDING SURGEON: Dr. Moo Montes.* (DICTATED BY TAVO PRICE) PROCEDURE: Left elbow irrigation and debridement with bone biopsy. CHIEF COMPLAINT: Left elbow. HISTORY OF PRESENT ILLNESS: Lexx is a 22-year-old male, who presents to the clinic 8 weeks status post ORIF of the olecranon for treatment of an open fracture dislocation that occurred on 12/03/17. He was doing well postoperatively, but developed lesion on his elbow that slowly improved. He then developed a second lesion yesterday. It was red and had yellow discharge. He has also had pain deep in his elbow since the lesions have started. He denies fever, chills, chest pain, shortness of breath, numbness or tingling and is doing well otherwise. PAST MEDICAL HISTORY: No current problems. PAST SURGICAL HISTORY: Varicose vein stripping, appendectomy, ORIF of the left elbow, and back surgery. MEDICATIONS: 1. [place] 7.5/325 one every 6 hours as needed for pain. 2. Ambien 10 mg 1 by mouth at night as needed. 3. Ibuprofen 600 mg 3 times a day. 4. Cyclobenzaprine 10 mg 1 by mouth every 8 hours as needed for muscle spasms. 5. Tylenol 325 two tabs every 6 hours as needed for pain or fever. 6. Docusate sodium 100 mg 1 every 12 hours as needed for constipation. 7. Iron 325 mg 1 by mouth every day. ALLERGIES: PENICILLIN. FAMILY HISTORY: Denies pertinent family history. 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 His family lives here in [place]. He reports occasional alcohol consumption. He denies tobacco use. He is right- hand dominant. REVIEW OF SYSTEMS: A 14-point review of systems was reviewed with the patient. Positive for current complaint, otherwise negative. Denies fever, chills, chest pain, shortness of breath, history of DVT or PE, history of bleeding disorder. PHYSICAL EXAMINATION GENERAL: A 22-year-old well-developed, well-nourished male, in no acute distress. Alert and oriented x3. VITAL SIGNS: Pulse 76, blood pressure 132/78, temperature 97.8. HEENT: Normocephalic, atraumatic. PERRLA. Throat clear. NECK: Supple. PULMONARY: Lungs are clear to auscultation bilaterally. No wheezing, rhonchi, or rales. CARDIO: Regular rate and rhythm. S1, S2. No murmurs, gallops, or rubs. No edema. ABDOMEN: Positive bowel sounds. Soft, nontender. NEURO: Alert and oriented x3. Cranial nerves grossly intact. MUSCULOSKELETAL: Left elbow: He has about 1 cm round erythematous lesion with active purulent drainage. His prior lesion is healing. Otherwise, the incision is healing well. He is missing about 10 degrees of full extension and can flex to 115. He is missing some pronation and supination. +2 radial pulse. Sensation intact to light touch distally. DIAGNOSTIC STUDIES: Multi-view x-rays were ordered, obtained, and reviewed today by Dr. Montes and revealed presence of left hardware from ORIF of the olecranon. He has some healing, but has not fully healed. The hardware is intact with no evidence of loosening and appropriate alignment. ASSESSMENT AND PLAN: Lexx is a 22-year-old male, who presents to the clinic 8 weeks status post ORIF of the left olecranon for treatment of an open fracture dislocation. He has a lesion on his incision and active infection; therefore, Dr. Montes will take him to the OR tomorrow on 01/30/18 for a left elbow irrigation and debridement and bone biopsy. It is unlikely that the hardware will able to be removed since he has not yet healed. We will washout the elbow , do a bone biopsy to send for cultures and place vancomycin powder prior to closing the wound. He will then be admitted for IV antibiotics. TAVO PRICE [id number]/[facility] #: [id number] [facility]ITAL[facility]
[2018-01-30] MEDS ORDERED: Vancomycin(*) 1,500 MG in NS 0.9% 250 ML* 250 ML IVPB ONE (17:15)
[2018-01-30] MEDS ORDERED: Bupivacaine 0.25% SDV PF* 10 ML VIAL INJ ONE (18:28)
[2018-01-30] MEDS ORDERED: Scopolamine 1.5 mg* PATCH ONE (18:29)
[2018-01-30] MEDS ORDERED: fentaNYL* 50 MCG/ML 2 ML VIAL (100 MCG VIAL) ONE ×3 (18:32→20:39)
[2018-01-30] MEDS ORDERED: Propofol* 10 MG/ML 20 ML BTL IV PUSH ONE ×2 (18:32→18:53)
[2018-01-30] MEDS ORDERED: Midazolam* 1 MG/ML 5 ML VIAL (5 MG) ONE (18:32)
[2018-01-30] MEDS ORDERED: Ondansetron INJ* 2 MG/ML VIAL ONE (19:24)
[2018-01-30] MEDS ORDERED: oxyCODONE TAB* 5 MG TAB PO PRN (19:29)
[2018-01-30] MEDS ORDERED: DiMENhydriNATE IV* 50 MG/ML VIAL IV PUSH PRN (19:29)
[2018-01-30] MEDS ORDERED: Naloxone* 0.4 MG/ML 1 ML VIAL IV PRN (19:29)
[2018-01-30] MEDS ORDERED: Ondansetron INJ* 2 MG/ML VIAL IV PRN (19:29)
[2018-01-30] MEDS ORDERED: Ketorolac INJ* 30 MG/ML 1 ML VIAL ONE (19:45)
[2018-01-30] MEDS ORDERED: Ondansetron TAB* 4 MG PO PRN (19:56)
[2018-01-30] MEDS ORDERED: Magnesium Hydroxide LIQ* 30 ML UDC PO PRN (19:56)
[2018-01-30] MEDS ORDERED: Docusate CAP* 100 MG PO PRN (19:56)
[2018-01-30] MEDS ORDERED: diPHENhydraMINE IV* 50 MG/ML 1 ml VIAL (BENADRYL) IV PRN (19:56)
[2018-01-30] MEDS ORDERED: Ondansetron ODT TAB* 4 MG PO PRN (19:56)
[2018-01-30] MEDS ORDERED: oxyCODONE/Acetamin 5/325 MG* TAB PO PRN ×2 (19:56)
[2018-01-30] MEDS ORDERED: Acetaminophen TAB* 325 MG PO SCH (20:00)
[2018-01-30] MEDS ORDERED: DiMENhydriNATE IV* 50 MG/ML VIAL ONE (20:31)
[2018-01-30] MEDS ORDERED: HYDROmorphone INJ1* 1 MG/ML SYRINGE ONE (20:39)
[2018-01-30] MEDS: fentaNYL* 50 MCG/ML 2 ML VIAL (100 MCG VIAL) IV PRN ×2 (20:40→20:48)
[2018-01-30] MEDS: HYDROmorphone INJ1* 1 MG/ML SYRINGE IV PRN ×2 (20:41→20:46)
[2018-01-30] MEDS ORDERED: oxyCODONE TAB* 5 MG TAB ONE (20:45)
[2018-01-30] MEDS ORDERED: Vancomycin per Pharmacy* NOTE FOLLOW UP SCH (21:00)
[2018-01-30] MEDS: Acetaminophen TAB* 325 MG PO SCH (22:48)
[2018-01-30] MEDS: diPHENhydraMINE PO* 25 MG PO PRN (22:48)
[2018-01-30 23:59] LABS: EGFR Non-African American 87.7 (>60)
[2018-01-31] MEDS ORDERED: Vancomycin(*) 1,250 MG in NS 0.9% 250 ML* 250 ML IVPB SCH (04:00)
[2018-01-31] MEDS: Acetaminophen TAB* 325 MG PO SCH ×3 (06:12→21:47)
[2018-01-31 06:47] LABS: Hematocrit 39 % (42-52); Hemoglobin 13.2 g/dl (14.0-18.0); Mean Platelet Volume 7.6 fL (7.4-10.4); Platelet Count 204 10^3/ul (150-450)
[2018-01-31 07:11] LABS: EGFR Non-African American 90.8 (>60)
[2018-01-31] MEDS: Enoxaparin(*) 40 MG/0.4 ML SYR SUBCUT SCH (12:24)
--- NOTE | 2018-01-31 15:26 | PN ---
Progress Note - Progress Note Date of Service: 01/31/18 SOAP: Subjective: []Patient seen and examined at bedside. He feels well without fever, chills or LUE pain. Objective: []General: well appearing, NAD LUE: Splint CDI, no skin irritation surrounding. Flexion and extension of wrist , MCPs, PIPs, DIPs intact. Capillary refill less than two seconds distally, radial pulse 2+. Assessment: []POD 1 sp left elbow I&D, bone biopsy. + Staph aureus Plan: []NWB LUE, move hand and shoulder as tolerated IV abx, needs PICC. ID consult today, will be on IV ancef Vital Signs Temp 97.4 F 01/31/18 11:15 Pulse 57 01/31/18 11:15 Resp 14 01/31/18 11:15 BP 126/46 01/31/18 11:15 Pulse Ox 98 01/31/18 11:15 Intake & Output 01/30/18 01/31/18 01/31/18 18:59 06:59 18:59 Intake Total 2250 1382 Output Total 600 0 Balance 1650 1382 Weight 202 lb 202 lb Intake: IV Fluids 1650 980 250nl VANCOMYCIN 1500MG 250 LR 980 lr 1400 IVPB 252 ABT 252 Oral 600 150 Output: Urine 600 0 Other: # Bowel Movements 0 Estimated Blood Loss min Comment Laboratory Last Values Hgb 13.2 g/dl (14.0-18.0) L 01/31/18 06:33 Hct 39 % (42-52) L 01/31/18 06:33 Plt Count 204 10^3/ul (150-450) 01/31/18 06:33 MPV 7.6 fL (7.4-10.4) 01/31/18 06:33 Sodium 140 mmol/L (135-145) 01/31/18 06:33 Potassium 3.9 mmol/L (3.5-5.0) 01/31/18 06:33 Chloride 103 mmol/L (101-111) 01/31/18 06:33 Carbon Dioxide 31 mmol/L (22-32) 01/31/18 06:33 Anion Gap 6 mmol/L (2-11) 01/31/18 06:33 BUN 14 mg/dL (6-24) 01/31/18 06:33 Creatinine 1.01 mg/dL (0.67-1.17) 01/31/18 06:33 Est GFR ( Amer) 109.8 (>60) 01/31/18 06:33 Est GFR (Non-Af Amer) 90.8 (>60) 01/31/18 06:33 BUN/Creatinine Ratio 13.9 (8-20) 01/31/18 06:33 Glucose 81 mg/dL (70-100) 01/31/18 06:33 Calcium 9.2 mg/dL (8.6-10.3) 01/31/18 06:33
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
[2018-01-31] MEDS ORDERED: ceFAZolin 1 GM VIAL(*) 2 GM in NS 0.9% 100 ML* 100 ML IVPB SCH (17:00)
[2018-01-31] MEDS: ceFAZolin 2 GM PREMIX in ORs 2 GM/50 ML BAG IVPB SCH (17:21)
[2018-01-31] MEDS: diPHENhydraMINE PO* 25 MG PO PRN (20:47)
[2018-02-01] MEDS: ceFAZolin 2 GM PREMIX in ORs 2 GM/50 ML BAG IVPB SCH ×3 (01:00→17:14)
[2018-02-01] MEDS: oxyCODONE TAB* 5 MG TAB PO PRN ×2 (02:18→23:14)
[2018-02-01] MEDS: diPHENhydraMINE PO* 25 MG PO PRN ×2 (02:30→23:16)
[2018-02-01 05:27] LABS: Hematocrit 39 % (42-52); Hemoglobin 13.4 g/dl (14.0-18.0); Mean Platelet Volume 7.5 fL (7.4-10.4); Platelet Count 221 10^3/ul (150-450)
[2018-02-01] MEDS: Acetaminophen TAB* 325 MG PO SCH ×3 (06:21→21:58)
[2018-02-01] MEDS ORDERED: Vancomycin Trough Check NOTE FOLLOW UP ONE (11:30)
--- NOTE | 2018-02-01 12:27 | PN ---
Progress Note - Progress Note Date of Service: 02/01/18 SOAP: Subjective: []Patient seen at bedside, doing well. No complaints of pain. He was seen by Dr. Rodriguez who recommends 6 weeks of Cefazolin IV. He has not had PICC line placed yet. Denies fever, chills or nausea. Objective: [] Vital Signs Temp 97.8 F 02/01/18 07:35 Pulse 63 02/01/18 07:35 Resp 18 02/01/18 07:35 BP 119/57 02/01/18 07:35 Pulse Ox 99 02/01/18 07:35 Intake & Output 01/31/18 02/01/18 02/01/18 18:59 06:59 18:59 Intake Total 2118 450 Output Total 0 525 Balance 8 -75 Intake: IV Fluids 1716 LR 1716 IVPB 252 50 ABT 252 ABX - CEFAZOLIN 50 Oral 150 400 Output: Urine 0 525 Other: # Bowel Movements 0 Laboratory Results - last 24 hr 02/01/18 05:20 Hgb 13.4 L Hct 39 L Plt Count 221 MPV 7.5 Microbiology 01/30/18 19:20 Wound Gram Stain - Final Wound - Elbow Left Tissue Culture - Preliminary No Growth Day 1 01/30/18 19:12 Anaerobic Culture - Preliminary Wound - Elbow Left 01/30/18 19:20 Wound Gram Stain - Final Wound 01/30/18 19:12 Skin and Soft Tissue MRSA/MSSA (PCR - Final Elbow Left Mrsa Negative S.aureus Positive Gram Stain - Final Left elbow splint removed with dressings Moderate soft tissue edema with minimal erythema, old bloody drainage on dressings, no purulent drainage AROM 20-110 degrees with splint removed sensation and circulation remain intact distally new 4x4 and GOPAL wrap applied Assessment: []Left elbow infection s/p I&D, remote ORIF left olecronon fx MSSA- On Cefazolin Plan: []PICC line ordered Home when home IV ABX arranged and PICC placed ROM left elbow ad anderson
[2018-02-01] MEDS: Enoxaparin(*) 40 MG/0.4 ML SYR SUBCUT SCH (12:33)
--- NOTE | 2018-02-01 13:34 | PN ---
Progress Note - Progress Note Date of Service: 02/01/18 SOAP: Subjective: CC: elbow infection HPI: 22 year old man with left olecranon fracture s/p ORIF and now I&D for swelling, pain, bullae. Pain good today; no fever, rash, or diarrhea. Objective: Vital Signs Temp 36.2 C 02/01/18 11:13 Pulse 56 02/01/18 11:13 Resp 16 02/01/18 11:13 BP 134/64 02/01/18 11:13 Pulse Ox 98 02/01/18 11:13 Intake & Output 01/31/18 02/01/18 02/01/18 18:59 06:59 18:59 Intake Total 2118 450 Output Total 0 525 Balance 8 -75 Intake: IV Fluids 1716 LR 1716 IVPB 252 50 ABT 252 ABX - CEFAZOLIN 50 Oral 150 400 Output: Urine 0 525 Other: # Bowel Movements 0 Gen: awake, no distress HEENT: no thrush Heart:RRR no murmur Lungs:CTA BL Abd:+BS NTND soft Skin: no rash MSK: L arm wrapped Laboratory Results - last 24 hr 02/01/18 05:20 Hgb 13.4 L Hct 39 L Plt Count 221 MPV 7.5 Microbiology 01/30/18 19:20 Wound Gram Stain - Final Wound - Elbow Left Tissue Culture - Preliminary No Growth Day 1 01/30/18 19:12 Anaerobic Culture - Preliminary Wound - Elbow Left Assessment: 1. MMSA left olecranon fixation hardware infection and acute osteomyelitis 2. PCN allergy, tolerating ancef Plan: 1. ancef 2 gm IV Q8hrs day w weekly cbc, cmp, crp (ordered). Awaiting [facility] for home abx. 35 minutes floor time >50% face to face discussing home antibiotic plans
[2018-02-02] MEDS: ceFAZolin 2 GM PREMIX in ORs 2 GM/50 ML BAG IVPB SCH ×3 (01:00→17:18)
[2018-02-02] MEDS: Acetaminophen TAB* 325 MG PO SCH ×3 (05:23→22:03)
[2018-02-02 05:54] LABS: Hematocrit 40 % (42-52); Hemoglobin 13.5 g/dl (14.0-18.0); Mean Platelet Volume 7.7 fL (7.4-10.4); Platelet Count 238 10^3/ul (150-450)
--- NOTE | 2018-02-02 07:46 | PN ---
Progress Note - Progress Note Date of Service: 02/02/18 SOAP: Subjective: Pt seen and examined. Doing ok. Pain controlled. Waiting for PICC. Objective: Temp Pulse Resp BP Pulse Ox 97.5 F 65 16 127/60 99 02/02/18 03:47 02/02/18 03:47 02/02/18 03:47 02/02/18 03:47 02/02/18 03:47 NAD. left elbow dressing in place. working on ROM ROM 5-125. SILT grossly distally. brisk cap refill Assessment: POD#3 from I and D Plan: no apparent infection in bone. needs PICC line for 6 weeks of IV abx. analgesia d/c when picc placed
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
[2018-02-02] MEDS: Enoxaparin(*) 40 MG/0.4 ML SYR SUBCUT SCH (12:04)
[2018-02-02] MEDS ORDERED: Scopolamine PATCH Remove* 1 NOTE MISC PATCH OFF ONE (19:30)
[2018-02-02] MEDS: oxyCODONE TAB* 5 MG TAB PO PRN (23:36)
[2018-02-03] MEDS: ceFAZolin 2 GM PREMIX in ORs 2 GM/50 ML BAG IVPB SCH ×3 (01:11→17:15)
[2018-02-03] MEDS: diPHENhydraMINE PO* 25 MG PO PRN ×2 (01:59→19:15)
[2018-02-03] MEDS: Acetaminophen TAB* 325 MG PO SCH ×3 (05:54→22:04)
[2018-02-03 06:36] LABS: Hematocrit 40 % (42-52); Hemoglobin 13.9 g/dl (14.0-18.0); Mean Platelet Volume 7.6 fL (7.4-10.4); Platelet Count 213 10^3/ul (150-450)
--- NOTE | 2018-02-03 08:34 | PN ---
Progress Note - Progress Note Date of Service: 02/03/18 SOAP: Subjective: resting comfortable with no significant complaints of pain Objective: Vital Signs Temp Pulse Resp BP Pulse Ox 97.6 F 56 16 117/72 98 02/03/18 04:46 02/03/18 04:46 02/03/18 04:46 02/03/18 04:46 02/03/18 04:46 Laboratory Last Values Hgb 13.9 g/dl (14.0-18.0) L 02/03/18 06:12 Hct 40 % (42-52) L 02/03/18 06:12 Plt Count 213 10^3/ul (150-450) 02/03/18 06:12 MPV 7.6 fL (7.4-10.4) 02/03/18 06:12 Sodium 140 mmol/L (135-145) 01/31/18 06:33 Potassium 3.9 mmol/L (3.5-5.0) 01/31/18 06:33 Chloride 103 mmol/L (101-111) 01/31/18 06:33 Carbon Dioxide 31 mmol/L (22-32) 01/31/18 06:33 Anion Gap 6 mmol/L (2-11) 01/31/18 06:33 BUN 14 mg/dL (6-24) 01/31/18 06:33 Creatinine 1.01 mg/dL (0.67-1.17) 01/31/18 06:33 Est GFR ( Amer) 109.8 (>60) 01/31/18 06:33 Est GFR (Non-Af Amer) 90.8 (>60) 01/31/18 06:33 BUN/Creatinine Ratio 13.9 (8-20) 01/31/18 06:33 Glucose 81 mg/dL (70-100) 01/31/18 06:33 Calcium 9.2 mg/dL (8.6-10.3) 01/31/18 06:33 incision: c/d PE: intact sensation, 2+ DP pulse; near full flex/ext Assessment: s/p I&d Left elbow Plan: 1) PICC line to be placed Sunday; D/C home once placed and Abx arranged 2) continue abx per ID 3) SCD's when in bed
[2018-02-03] MEDS: Enoxaparin(*) 40 MG/0.4 ML SYR SUBCUT SCH (13:17)
[2018-02-03] MEDS: oxyCODONE TAB* 5 MG TAB PO PRN (22:05)
[2018-02-04] MEDS: ceFAZolin 2 GM PREMIX in ORs 2 GM/50 ML BAG IVPB SCH ×2 (00:26→09:07)
[2018-02-04 05:33] LABS: Hematocrit 41 % (42-52); Mean Platelet Volume 7.6 fL (7.4-10.4); Platelet Count 229 10^3/ul (150-450)
[2018-02-04] MEDS: Acetaminophen TAB* 325 MG PO SCH ×2 (05:52→14:29)
[2018-02-04 09:19] LABS: Mean Corpuscular HGB Conc 34 g/dl (31-36); Mean Corpuscular Hemoglobin 29 pg (27-31); Mean Corpuscular Volume 86 fL (80-94); Red Blood Count 4.81 10^6/ul (4.00-5.40); Red Cell Distribution Width 13 % (10.5-15); White Blood Count 4.2 10^3/ul (3.5-10.8)
--- NOTE | 2018-02-04 10:33 | PN ---
Progress Note - Progress Note Date of Service: 02/04/18 SOAP: Subjective: []Patient was seen and examined today. He feels well, he has no complaints and would like to D/C home. Has been working on ROM of his elbow. No numbness or tingling of the hand Objective: []General: Well appearing, NAD LUE: Incision healing well, no discharge. Elbow ROM 5-120 comfortably. Assessment: s/p I&d Left Elbow for MSSA left olecranon fixation hardware infection Plan: ceftriaxone 2 g IV Q 24hr today and tomorrow then resume ancef 2 gm IV Q8hrs w weekly cbc, cmp, crp ROM as tolerated, no pushing, pulling or lifting. Vital Signs Temp 97.5 F 02/04/18 07:24 Pulse 76 02/04/18 07:24 Resp 16 02/04/18 08:10 BP 114/68 02/04/18 07:24 Pulse Ox 100 02/04/18 08:10 Intake & Output 02/03/18 02/04/18 02/04/18 18:59 06:59 18:59 Intake Total 360 511 76 Balance 360 511 76 Intake: IV Fluids 41 30 NS (0.9%) 41 30 IVPB 110 46 ABX - CEFAZOLIN 110 46 Oral 360 360 Other: Estimated Void Medium Medium # Voids 4 2 Laboratory Last Values WBC 4.2 10^3/ul (3.5-10.8) 02/04/18 05:08 RBC 4.81 10^6/ul (4.00-5.40) 02/04/18 05:08 Hgb 14.0 g/dl (14.0-18.0) 02/04/18 05:08 Hct 41 % (42-52) L 02/04/18 05:08 MCV 86 fL (80-94) 02/04/18 05:08 MCH 29 pg (27-31) 02/04/18 05:08 MCHC 34 g/dl (31-36) 02/04/18 05:08 RDW 13 % (10.5-15) 02/04/18 05:08 Plt Count 229 10^3/ul (150-450) 02/04/18 05:08 MPV 7.6 fL (7.4-10.4) 02/04/18 05:08 Sodium 140 mmol/L (135-145) 01/31/18 06:33 Potassium 3.9 mmol/L (3.5-5.0) 01/31/18 06:33 Chloride 103 mmol/L (101-111) 01/31/18 06:33 Carbon Dioxide 31 mmol/L (22-32) 01/31/18 06:33 Anion Gap 6 mmol/L (2-11) 01/31/18 06:33 BUN 14 mg/dL (6-24) 01/31/18 06:33 Creatinine 1.01 mg/dL (0.67-1.17) 01/31/18 06:33 Est GFR ( Amer) 109.8 (>60) 01/31/18 06:33 Est GFR (Non-Af Amer) 90.8 (>60) 01/31/18 06:33 BUN/Creatinine Ratio 13.9 (8-20) 01/31/18 06:33 Glucose 81 mg/dL (70-100) 01/31/18 06:33 Calcium 9.2 mg/dL (8.6-10.3) 01/31/18 06:33
--- NOTE | 2018-02-04 10:51 | PN ---
Progress Note - Progress Note Date of Service: 02/04/18 SOAP: Subjective: CC: elbow infection HPI: 22 year old man with left olecranon fracture s/p ORIF and now I&D for swelling, pain, bullae. Tolerating antibiotics well, no pain, fever, rash, or diarrhea. Objective: Vital Signs Temp 36.4 C 02/04/18 07:24 Pulse 76 02/04/18 07:24 Resp 16 02/04/18 08:10 BP 114/68 02/04/18 07:24 Pulse Ox 100 02/04/18 08:10 Intake & Output 02/03/18 02/04/18 02/04/18 18:59 06:59 18:59 Intake Total 360 511 76 Balance 360 511 76 Intake: IV Fluids 41 30 NS (0.9%) 41 30 IVPB 110 46 ABX - CEFAZOLIN 110 46 Oral 360 360 Other: Estimated Void Medium Medium # Voids 4 2 Gen: awake, no distress HEENT: no thrush Heart:RRR no murmur Lungs:CTA BL Abd:+BS NTND soft Skin: no rash MSK: L arm wrapped Laboratory Results - last 24 hr 02/04/18 05:08 WBC 4.2 RBC 4.81 Hgb 14.0 Hct 41 L MCV 86 MCH 29 MCHC 34 RDW 13 Plt Count 229 MPV 7.6 Microbiology 01/30/18 19:20 Wound Wound Gram Stain - Final 01/30/18 19:20 Wound Tissue Culture - Final Staphylococcus Aureus 01/30/18 19:20 Wound - Elbow Left Wound Gram Stain - Final 01/30/18 19:20 Wound - Elbow Left Tissue Culture - Final No Growth Day 4 01/30/18 19:12 Wound - Elbow Left Anaerobic Culture - Final 01/30/18 19:12 Elbow Left Skin and Soft Tissue MRSA/MSSA (PCR - Final Mrsa Negative S.aureus Positive 01/30/18 19:12 Elbow Left Gram Stain - Final 01/30/18 19:12 Elbow Left Wound Culture - Final Staphylococcus Aureus Assessment: 1. MSSA left olecranon fixation hardware infection and acute osteomyelitis 2. PCN allergy, tolerating ancef Plan: 1. ancef 2 gm IV Q8hrs day 5/ w weekly cbc, cmp, crp (ordered). Awaiting WC auth for home abx. 25 minutes floor time >50% face to face with patient and dad discussing home antibiotic plans
[2018-02-04] MEDS: Enoxaparin(*) 40 MG/0.4 ML SYR SUBCUT SCH (12:46)
[2018-02-04] MEDS ORDERED: cefTRIAXone(*) 2 GM in NS 0.9% 100 ML* 100 ML IVPB ONE (14:45)
[2018-02-04 16:37] VITALS: BP 123/57
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
== END 2018-02-04 17:45 | disposition home or self-care (01) | DRG 317 ==
LOC: OR 15:02 → SSU 21:33
PROVIDERS: ADMIT Physician Assistant; ATTEND Orthopaedic Surgery
PROC: 0PBL0ZX Excision of Left Ulna, Open Approach, Diagnostic (ICD-10-PCS; 2018-01-30)
PROC: 02HV33Z Insertion of Infusion Device into Superior Vena Cava, Percutaneous Approach (ICD-10-PCS; 2018-01-30)
PROC: 0J9H0ZZ Drainage of Left Lower Arm Subcutaneous Tissue and Fascia, Open Approach (ICD-10-PCS; principal; 2018-01-30 17:00)
DX: T84.59XA Infection and inflammatory reaction due to other internal joint prosthesis, initial encounter (principal); M86.142 Other acute osteomyelitis, left hand; Y79.2 Prosthetic and other implants, materials and accessory orthopedic devices associated with adverse incidents; B95.61 Methicillin susceptible Staphylococcus aureus infection as the cause of diseases classified elsewhere; Z88.0 Allergy status to penicillin; Z98.1 Arthrodesis status; Z90.89 Acquired absence of other organs; Z72.89 Other problems related to lifestyle; Y92.9 Unspecified place or not applicable
CPT/HCPCS: 36415; 80048; 82565; 85014; 85018; 85027; 85049; 87070; 87073; 87077; 87186; 87205; 87640; 87641; A9270-GY; C1751; J0690; J0696; J1170; J1240; J1650; J1885; J2250; J2405; J2704; J3010; J3370; J3490

== ENCOUNTER → 2018-12-25 | Day surgery (SDC) | payer OTHER ==
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
[~2018-12-25] MED LIST: Acetaminophen TAB* 325 MG PO PRN; Buffered Lidocaine 1% SYRIN* 1 ML/SYRINGE INTRADERM ONE; Bupivacaine 0.25% SDV PF* 10 ML VIAL INJ ONE; Bupivacaine 0.5% W/EPI SDV* 10 ML VIAL INJ ONE; Clindamycin 900 MG/D5W BAG(*) 900 MG/50 ML BAG IVPB ONE; Dexamethasone IV* 4 MG/ML 1 ML (4 MG) ONE; DiMENhydriNATE IV* 50 MG/ML VIAL IV PUSH PRN; DiMENhydriNATE IV* 50 MG/ML VIAL ONE; Famotidine IV* 10 MG/ML 2 ML (20 mg) IV ONE; Famotidine IV* 10 MG/ML 2 ML (20 mg) ONE; HYDROmorphone INJ1* 1 MG/ML SYRINGE ONE; Ketorolac INJ* 30 MG/ML 1 ML VIAL ONE; Lactated Ringers 1000 ML Bag* 1,000 ML IV SCH; Lidocaine 2% PF * 5 ML VIAL ONE; Midazolam* 1 MG/ML 5 ML VIAL (5 MG) ONE; Ondansetron INJ* 2 MG/ML VIAL ONE; Propofol* 10 MG/ML 20 ML BTL ONE; Scopolamine 1.5 mg* PATCH ONE; Scopolamine 1.5 mg* PATCH TRANSDERM SCH; Succinylcholine* 20 MG/ML 10 ML VIAL ONE; fentaNYL* 50 MCG/ML 2 ML VIAL (100 MCG VIAL) ONE; oxyCODONE TAB* 5 MG TAB ONE; oxyCODONE TAB* 5 MG TAB PO PRN
[2018-12-25 14:10] VITALS: BP 91/50
--- NOTE | 2018-12-26 14:59 | OP ---
OPERATIVE REPORT: DATE OF OPERATION: 12/25/18 DATE OF : 89 ATTENDING SURGEON: Moo Montes MD. FLAT POLISHER: TAVO Ward An printer assistant was needed for the entirety of the case to help with positioning, retraction, and was utilized throughout all portions of the case. ANESTHESIOLOGIST: Dr. Maradiaga. ANESTHESIA: General. PRE-OP DIAGNOSIS: Left elbow retained hardware and stiffness. POST-OP DIAGNOSIS: Left elbow retained hardware and stiffness. OPERATIVE PROCEDURE: Left elbow removal of hardware and manipulation under anesthesia. COMPLICATIONS: None. ESTIMATED BLOOD LOSS: Minimal. TOURNIQUET TIME: 58 minutes at 250 mmHg. SPECIMENS: We did take culture specimens during the surgery to make sure there was no infection. INDICATIONS: Lexx Delarosa is a 23-year-old male who sustained an work-related injury in November 2017. He had an open fracture of his olecranon that was treated in [place]. He subsequently followed up here, [place]. He then had an infection and we took him for an I and D and he was concerned that his hardware was infected and that he would need to have it taken out after waiting to make sure that his bones did heal. He has elected to proceed with surgery. He has been on antibiotics for almost the better part of the year and we are hoping to get him off the antibiotics. After extensive discussion on risks and benefits of surgery versus nonoperative treatment, he has elected to proceed with surgical treatment. Risks include, but are not limited to bleeding, infection, damage to nerves, vessels and surrounding structures, wound nonhealing, persistent pain, the bone re-breaking, persistent infection, risk of need for further surgery, risk of anesthesia, scarring and stiffness. DESCRIPTION OF PROCEDURE: The patient was greeted in the preoperative area by the attending surgeon. Correct extremity was marked and consent was confirmed. The patient was brought back to the operating suite, was placed in supine position on operating table, underwent general anesthesia and endotracheal intubation after which he was placed in the right lateral decubitus position with an axillary roll. He was secured with the beanbag. The left arm was draped over the pillow. An unsterile tourniquet was placed high on the proximal arm. The left arm was then prepped and draped in usual sterile fashion beginning with chlorhexidine soap scrub and alcohol wipe and a final prep with ChloraPrep. After appropriate surgical pause indicating correct side, site, procedure, administration of antibiotics, the previously made incision was then opened with 15- blade. Soft tissue was carefully dissected to expose the hardware. The posterior plate was readily available. The screws were then removed in their entirety and the plate was loosened and removed. There was no evidence of infection. We did take culture swab to send to make sure there was no evidence of any infection, which we will continue to monitor. The screw holes were then rongeured. Then attention was directed medially to the smaller plate. This was found to be a mini hand plate. The 4 screws were then removed in their entirety and the plate also. X-rays were obtained and confirmed that there was no hardware remaining. The elbow was then taken through range of motion. He was able to fully extend. I was able to flex him to about 135 degrees. The wounds were copiously irrigated with sterile saline. The fascia was closed with 2-0 Vicryl in interrupted fashion. The skin was closed in layers with 3-0 Monocryl and then with 3-0 nylon. The wound was then superficially injected with 0.25% Marcaine. Sterile dressings were applied. Tourniquet was released and the posterior splint was applied. He was awoken from anesthesia, transferred to PACU in stable condition. His hands were pink and well perfused. POSTOPERATIVE PLAN: He will be non-weightbearing. He will remain in the splint for about 7 to 10 days. He will be discharged on pain medication. He is going to continue his antibiotics. I will see him back in the office and take him out of the splint, make sure his wound looks okay and he started having more range of motion with therapy. [id number]/CPS #: [id number]
== END | disposition home or self-care (01) ==
LOC: OR 09:01
PROVIDERS: ATTEND Orthopaedic Surgery
DX: T84.84XA Pain due to internal orthopedic prosthetic devices, implants and grafts, initial encounter (principal); M25.622 Stiffness of left elbow, not elsewhere classified; Y83.1 Surgical operation with implant of artificial internal device as the cause of abnormal reaction of the patient, or of later complication, without mention of misadventure at the time of the procedure; S52.022E Displaced fracture of olecranon process without intraarticular extension of left ulna, subsequent encounter for open fracture type I or II with routine healing; W19.XXXD Unspecified fall, subsequent encounter; Y92.9 Unspecified place or not applicable
CPT/HCPCS: 87070; 87073; 87205; 88300; A9270-GY; J0330; J1100; J1170; J1240; J1885; J2250; J2405; J2704; J3010; J3490